=== PATIENT | male | born 1980 | race Two or more races ===

== ENCOUNTER → 2018-03-01 | Emergency (ER) | payer SELFPAY ==
[~2018-03-01] VITALS: Ht 167.6 cm; Wt 59.0 kg
[~2018-03-01] MED LIST: CEPHALEXIN500 MG ORAL; HYDROCODON-ACE1 EA15 ORAL; Norco 5mg/325mg tab ORAL ONE; Tetanus/Diptheria/Pertussis Vaccine 0.5ml Syr IM ONE
[2018-03-01 22:02] VITALS: BP 131/90
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
[2018-03-01 23:17] VITALS: BP 131/90
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
== END | disposition home or self-care (01) ==
LOC: EMR 23:20
DX: S92.322B Displaced fracture of second metatarsal bone, left foot, initial encounter for open fracture (principal); S92.332B Displaced fracture of third metatarsal bone, left foot, initial encounter for open fracture; S92.342B Displaced fracture of fourth metatarsal bone, left foot, initial encounter for open fracture; X95.9XXA Assault by unspecified firearm discharge, initial encounter; Y92.89 Other specified places as the place of occurrence of the external cause; Z23 Encounter for immunization
CPT/HCPCS: 29515; 90471; 90715; 99283